=== PATIENT | female | born 1970 | race Caucasian/White ===

== ENCOUNTER → 2021-05-26 | Outpatient (CLI) | payer OTHER | LOC: KOH-I 10:09 | DX: M79.641 Pain in right hand (principal); M79.642 Pain in left hand; M25.551 Pain in right hip; M25.552 Pain in left hip; M19.041 Primary osteoarthritis, right hand; M19.042 Primary osteoarthritis, left hand | CPT/HCPCS: 73130; 73522; 73552 ==

== ENCOUNTER → 2021-08-24 | Outpatient (CLI) | payer OTHER | LOC: HEART 5 03-24 09:30 | DX: R07.9 Chest pain, unspecified (principal) ==

== ENCOUNTER → 2021-10-15 | Outpatient (CLI) | payer OTHER | LOC: ECHO 09:15 | DX: R07.9 Chest pain, unspecified (principal) | CPT/HCPCS: ECHO; 93306 ==

== ENCOUNTER 2021-11-19 18:41 | Emergency (ER) | payer OTHER ==
[2021-11-19] MEDS ORDERED: CEPHALEXIN500 MG PO (20:17)
== END 2021-11-19 20:55 | disposition home or self-care (01) ==
LOC: ER1 18:41
DX: S81.811A Laceration without foreign body, right lower leg, initial encounter (principal); W45.8XXA Other foreign body or object entering through skin, initial encounter; Z23 Encounter for immunization
CPT/HCPCS: 12004; 90471; 90714; 99282

== ENCOUNTER → 2022-02-05 | Outpatient (CLI) | payer OTHER ==
[~2022-02-05] MED LIST: CEPHALEXIN500 MG PO
== END ==
LOC: KOH-I 08:09
DX: M25.562 Pain in left knee (principal)
CPT/HCPCS: 73562; 73590